=== PATIENT | female | born 1995 | race Hispanic/Latino ===

== ENCOUNTER 2023-03-29 07:10 | Day surgery (SDC) | payer MEDICAID ==
[2023-03-28 13:46] VITALS: BP 135/69; PULSE 81; RESP 16
[2023-03-28 14:16] LABS: BASOPHILS # (AUTO) 0.07 K/uL (0.00-0.20); BASOPHILS % (AUTO) 0.6 % (0.0-5.0); EOSINOPHILS # (AUTO) 0.22 K/uL (0.00-0.70); IMMATURE GRANULOCYTE ABSOLUTE 0.05 K/uL (0-1); LYMPHOCYTES # (AUTO) 4.7 K/uL (1.0-4.8); LYMPHOCYTES % (AUTO) 41.7 % (21.0-51.0); MEAN CORPUSCULAR HEMOGLOBIN 26.8 pg (27.0-33.0); MEAN CORPUSCULAR HGB CONC 31.8 g/dL (32.0-36.0); MEAN CORPUSCULAR VOLUME 84.4 fL (79-99); MONOCYTES # (AUTO) 0.7 K/uL (0.1-1.0); MONOCYTES % (AUTO) 6.5 % (3.0-13.0); NEUTROPHILS # (AUTO) 5.4 K/uL (1.8-7.7); NEUTROPHILS % (AUTO) 48.8 % (40.0-77.0); PLATELET COUNT (AUTO) 476 K/uL (130-400); RED BLOOD CELL COUNT(AUTO) 4.03 MIL/uL (4.00-5.50); RED CELL DISTRIBUTION WIDTH 17.7 % (11.0-15.5); WHITE BLOOD COUNT (AUTO) 11.2 K/uL (4.8-10.8)
[~2023-03-29] VITALS: Ht 170.2 cm; Wt 101.9 kg
[2023-03-29] VITALS (19 sets, daily range): BP systolic 108–125; BP diastolic 59–77; PULSE 58–88; RESP 12–20
[2023-03-29] MEDS ORDERED: LACTATED RINGERS 1000ML 1,000 ML IV ONE (07:28)
[2023-03-29] MEDS ORDERED: CEFAZOLIN SODIUM 1 GM VIAL ONE (07:28)
[2023-03-29] MEDS ORDERED: CEFAZOLIN SODIUM 2 GM VIAL ONE (07:28)
[2023-03-29] MEDS ORDERED: BUPIVACAINE/PF 0.25% 30ML VIAL IJ ONE (08:15)
[2023-03-29] MEDS ORDERED: DEXAMETHASONE SOD PHOSPHATE 10MG/ML 1ML VIAL ONE (08:23)
[2023-03-29] MEDS ORDERED: SUCCINYLCHOLINE CHLORIDE 20 MG/ML 10 ML VIAL ONE (08:23)
[2023-03-29] MEDS ORDERED: LIDOCAINE PF 100MG/5ML (2%) SYRINGE 5ML ONE (08:23)
[2023-03-29] MEDS ORDERED: NEOSTIGMINE 5MG/5ML SYR IV ONE (08:24)
[2023-03-29] MEDS ORDERED: GLYCOPYRROLATE 1 MG/5 ML SYRINGE ONE (08:24)
[2023-03-29] MEDS ORDERED: ONDANSETRON 4MG INJ ONE (08:24)
[2023-03-29] MEDS ORDERED: PROPOFOL 10 MG/ML 20ML VIAL IV ONE ×2 (08:24→09:43)
[2023-03-29] MEDS ORDERED: MIDAZOLAM HCL 1 MG/ML 2ML VIAL ONE (08:24)
[2023-03-29] MEDS ORDERED: ROCURONIUM 10MG/1ML SYR 10 MG/ML ML ONE (08:25)
[2023-03-29] MEDS ORDERED: FENTANYL CITRATE PF 50 MCG/1 ML 2ML VIAL ONE (08:25)
[2023-03-29] MEDS ORDERED: KETOROLAC 30MG VIAL (30MG/ML) ONE (09:45)
[2023-03-29] MEDS ORDERED: CEFAZOLIN SODIUM 3 GM VIAL IVPB ONE (09:46)
[2023-03-29] MEDS ORDERED: MEPERIDINE-PF 25 MG/ML SYG ONE (10:03)
== END 2023-03-29 12:20 | disposition home or self-care (01) ==
LOC: DAH 07:10
PROVIDERS: ATTEND Obstetrics & Gynecology
DX: Z30.2 Encounter for sterilization (principal); E66.9 Obesity, unspecified; Z68.35 Body mass index [BMI] 35.0-35.9, adult; Z87.891 Personal history of nicotine dependence
CPT/HCPCS: 84703; 85025; 86850; 86900; 86901; 36415; 58670; A4600; A6260; A4351; A4606; J0690 ×3; J7120; J3010; J3490 ×5; J1100; J2710; J0330; J2250; J2405; J1885; J2175; C1769 ×2; G0168; A4649; A4215 ×2; A4223; A4222; A4221; A4663; J2001; J2704